=== PATIENT | female | born 1995 | race African-American/Black ===

== ENCOUNTER 2020-01-14 18:32 | Emergency (ER) | payer OTHER ==
[~2020-01-14] VITALS: Ht 170.2 cm; Wt 93.4 kg
[2020-01-14 19:06] VITALS: BP 151/100
--- NOTE | 2020-01-14 19:10 | NUR ---
PT AMB TO [facility]
--- NOTE | 2020-01-14 19:25 | NUR ---
KATARINA SARMIENTO EVALUATING PATIENT IN CHAIR C.
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
[2020-01-14] MEDS ORDERED: KETOROLAC 30 MG/ML VIAL IM ONE (19:35)
[2020-01-14] MEDS ORDERED: HYDROcodone/APAP 5/325 MG 1 TAB TAB PO ONE (19:35)
[2020-01-14] MEDS ORDERED: ONDANSETRON 4 MG ODT PO ONE (19:35)
--- NOTE | 2020-01-14 19:45 | NUR ---
PT AMBULATED TO THE BATHROOM AND PROVIDED URINE SAMPLE.
--- NOTE | 2020-01-14 19:59 | NUR ---
PT TAKEN TO X-RAY VIA W/C
--- NOTE | 2020-01-14 20:10 | NUR ---
PT RETURNED FROM X-RAY.
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
--- NOTE | 2020-01-14 21:00 | NUR ---
PT RE-EVALUATED BY ER KATARINA SARMIENTO.
[2020-01-14 21:21] VITALS: BP 142/88
--- NOTE | 2020-01-14 21:21 | NUR ---
Patient discharged with v/s stable. Written and verbal after care instructions given and explained. Patient alert, oriented and verbalized understanding of instructions. Ambulatory with steady gait. All questions addressed prior to discharge. ID band removed. Patient advised to follow up with PMD. Rx of IBUPROFEN & FLEXERIL given. Patient educated on indication of medication including possible reaction and side effects. Opportunity to ask questions provided and answered.
== END 2020-01-14 21:21 | disposition home or self-care (01) ==
LOC: MED 18:32
DX: S16.1XXA Strain of muscle, fascia and tendon at neck level, initial encounter (principal); S66.912A Strain of unspecified muscle, fascia and tendon at wrist and hand level, left hand, initial encounter; M79.10 Myalgia, unspecified site; R03.0 Elevated blood-pressure reading, without diagnosis of hypertension; X58.XXXA Exposure to other specified factors, initial encounter; Y93.89 Activity, other specified; Y92.89 Other specified places as the place of occurrence of the external cause; Y99.8 Other external cause status
CPT/HCPCS: 29125; 72040; 73110; 81025; 96372; 99284; J1885; Q0162

== ENCOUNTER 2020-08-27 22:39 | Emergency (ER) | payer MEDICAID, OTHER ==
[~2020-08-27] VITALS: Ht 170.2 cm; Wt 94.8 kg
[2020-08-27 22:50] VITALS: BP 133/75
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
--- NOTE | 2020-08-28 00:30 | NUR ---
Dr. Kumar examining patient.
--- NOTE | 2020-08-28 00:59 | NUR ---
COVID PCR SWAB COLLECTED AND SENT TO LAB
--- NOTE | 2020-08-28 01:28 | NUR ---
X-Ray at bedside.
[2020-08-28 02:14] VITALS: BP 133/75
--- NOTE | 2020-08-28 02:14 | NUR ---
Patient discharged with v/s stable. Written and verbal after care instructions given and explained. Patient verbalized understanding. Ambulatory with steady gait. All questions addressed prior to discharge. Advised to follow up with PMD.
--- NOTE | 2020-08-29 14:36 | NUR ---
LATE ENTRY- Positive COVID-19 test results were received from lab. A copy of the test results were placed in infection control mailbox.
== END 2020-08-28 02:14 | disposition home or self-care (01) ==
LOC: MED 22:39
DX: U07.1 COVID-19 (principal)
CPT/HCPCS: 71045; 99284; U0003

== ENCOUNTER 2020-11-25 13:25 | Emergency (ER) | payer OTHER, MEDICAID ==
[~2020-11-25] VITALS: Ht 162.6 cm; Wt 55.3 kg
[2020-11-25 13:47] VITALS: BP 115/68
--- NOTE | 2020-11-25 13:50 | NUR ---
PT SENT TO LOBBY
[2020-11-25] MEDS ORDERED: LIDOCAINE MPF 1% 5 ML ONE (15:02)
[2020-11-25] MEDS: LIDOCAINE MPF 1% 10 MG/ML VIAL INJ ONE (15:06)
[2020-11-25] MEDS ORDERED: BACITRACIN OINT 500 UNITS/GM PKT TP ONE (15:12)
[2020-11-25] MEDS ORDERED: AMOX-1000 PO (15:14)
[2020-11-25] MEDS ORDERED: NAPR-54 PO (15:14)
[2020-11-25] MEDS: BACITRACIN OINT 500 UNITS/GM PKT TP ONE (15:26)
--- NOTE | 2020-11-25 15:26 | NUR ---
Daysi boykin in ED - 11/25/20 at 1559 by [email or web address] NO NURSING INTERVENTIONS GIVEN TO PATIENT.
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
--- NOTE | 2020-11-25 15:32 | NUR ---
Patient discharged with v/s stable. Written and verbal after care instructions given and explained. Patient alert, oriented and verbalized understanding of instructions. Ambulatory with steady gait. All questions addressed prior to discharge. ID band removed. Patient advised to follow up with PMD. Rx of NAPROXEN AND AUGMENTIN given. Patient educated on indication of medication including possible reaction and side effects. Opportunity to ask questions provided and answered.
[2020-11-25 15:38] VITALS: BP 122/64
== END 2020-11-25 15:32 | disposition home or self-care (01) ==
LOC: MED 13:25
DX: S01.511A Laceration without foreign body of lip, initial encounter (principal); Z79.899 Other long term (current) drug therapy; V89.2XXA Person injured in unspecified motor-vehicle accident, traffic, initial encounter; Y93.89 Activity, other specified; Y92.89 Other specified places as the place of occurrence of the external cause; Y99.8 Other external cause status
CPT/HCPCS: 12011; 99283; J2001

== ENCOUNTER 2021-04-26 21:20 | Emergency (ER) | payer MEDICAID ==
[~2021-04-26] VITALS: Ht 170.2 cm; Wt 87.1 kg
[~2021-04-26 21:20] MED LIST: AMOX-1000 PO; NAPR-54 PO
[2021-04-26 21:42] VITALS: BP 127/77
--- NOTE | 2021-04-26 21:53 | NUR ---
PT TAKEN TO LOBBY
--- NOTE | 2021-04-26 22:23 | NUR ---
ERMD AT BEDSIDE.
--- NOTE | 2021-04-26 22:38 | NUR ---
26 Y/O FEMALE BIB SELF, C/O NAUSEA X2 DAYS. PT STATES IN ADDITION TO THE NAUSEA SHE HAS VOMITED ONCE TODAY (-BLOOD), HEADACHE, STOMACH CRAMPS, AND LOSS OF APETITE. NO BLOOD IN VOMIT, NO VISION CHANGES; SKIN IS PINK/WARM/DRY; AAOX4 WITH EVEN AND STEADY GAIT; PT DENIES ANY FEVER, CP, SOB, OR COUGH AT THIS TIME; VSS; PATIENT LAYING RIGHT LATERAL, POSITIONED FOR COMFORT; BEDRAILS UP X1; BED DOWN. ER MD MADE AWARE OF PT STATUS. DENIES PMH, ALLERGIES, OR MEDS
[2021-04-26] MEDS: ACETAMINOPHEN EXTRA STRENGTH 500 MG TAB PO ONE (23:05)
[2021-04-26] MEDS: ONDANSETRON 4 MG ODT PO ONE (23:06)
--- NOTE | 2021-04-26 23:50 | NUR ---
EMILEE/ONOFRE COLLECTED AND WALKED TO LAB
[2021-04-27] MEDS ORDERED: TAM75 PO (01:23)
[2021-04-27] MEDS ORDERED: ONDA-188 SL (01:23)
[2021-04-27 01:40] VITALS: BP 127/77
--- NOTE | 2021-04-27 01:40 | NUR ---
Patient discharged with v/s stable. Written and verbal after care instructions given and explained. Patient alert, oriented and verbalized understanding of instructions. Ambulatory with steady gait. All questions addressed prior to discharge. ID band removed. Patient advised to follow up with PMD. Rx of Ondansetron and Oseltamivir Phosphate given. Patient educated on indication of medication including possible reaction and side effects. Opportunity to ask questions provided and answered. VSS, A/OX4, AMBULATORY, UNLABORED BREATHING, AND CALM DEMEANOR.
== END 2021-04-27 01:40 | disposition home or self-care (01) ==
LOC: MED 21:20
DX: J11.1 Influenza due to unidentified influenza virus with other respiratory manifestations (principal); Z20.822 Contact with and (suspected) exposure to COVID-19; R11.2 Nausea with vomiting, unspecified; R19.7 Diarrhea, unspecified; R10.9 Unspecified abdominal pain; R07.9 Chest pain, unspecified; R05.9 Cough, unspecified; R09.89 Other specified symptoms and signs involving the circulatory and respiratory systems; Z79.899 Other long term (current) drug therapy
CPT/HCPCS: 81002; 81025; 87426; 87804; 93005; 99284; Q0162

== ENCOUNTER 2021-05-18 15:27 | Emergency (ER) | payer MEDICAID ==
[~2021-05-18] VITALS: Ht 170.2 cm; Wt 85.7 kg
[~2021-05-18 15:27] MED LIST changes: +ONDA-188 SL; +TAM75 PO
[2021-05-18 15:47] VITALS: BP 148/97
[2021-05-18] MEDS ORDERED: METOCLOPRAMIDE 10 MG TAB PO ONE (16:20)
[2021-05-18] MEDS ORDERED: ACETAMINOPHEN EXTRA STRENGTH 500 MG TAB PO ONE (16:20)
[2021-05-18 16:28] LABS: BASOPHILS % (AUTO) 0.7 % (0.0-2.0); EOSINOPHILS % (AUTO) 0.9 % (0.0-4.0); HEMOGLOBIN 13.5 g/dL (12.0-16.0); LYMPHOCYTES # (AUTO) 2.2 K/uL (2.5-16.5); LYMPHOCYTES % (AUTO) 43.5 % (20.5-51.1); MEAN CORPUSCULAR HEMOGLOBIN 27 pg (27-31); MEAN CORPUSCULAR HGB CONC 33 g/dL (33-37); MEAN CORPUSCULAR VOLUME 82.5 fL (80-94); MONOCYTES # (AUTO) 0.4 K/uL (0.8-1.0); MONOCYTES % (AUTO) 8.5 % (1.7-9.3); NEUTROPHILS # (AUTO) 2.4 K/uL (1.8-7.7); NEUTROPHILS % (AUTO) 46.4 % (42.2-75.2); PLATELET COUNT (AUTO) 264 K/uL (140-450); RED BLOOD CELL COUNT(AUTO) 4.96 MIL/uL (4.20-5.40); RED CELL DISTRIBUTION WIDTH 14.5 % (11.6-13.7); WHITE BLOOD COUNT (AUTO) 5.2 K/uL (4.8-10.8)
[2021-05-18 17:18] LABS: ALBUMIN 4.2 g/dL (3.4-5.0); ANION GAP 13.8 (8-16); CARBON DIOXIDE 24.1 mmol/L (21-32); CREATININE 0.7 mg/dL (0.6-1.3); POTASSIUM 3.9 mmol/L (3.5-5.1); TOTAL BILIRUBIN 0.5 mg/dL (0.0-1.0)
[2021-05-18 19:46] VITALS: BP 128/77
[2021-05-18 20:31] LABS: APPEARANCE,URINE HAZY (CLEAR); BILIRUBIN,URINE 1+ (NEGATIVE); BLOOD, URINE 3+ (NEGATIVE); COLOR,URINE AMBER (YELLOW); LEUKOCYTE ESTERASE ,URINE NEGATIVE (NEGATIVE); NITRITE, URINE NEGATIVE (NEGATIVE); PH,URINE 8.5 (5.0-9.0); UGLUCOSE NEGATIVE (NEGATIVE)
[2021-05-18 21:16] LABS: RBC,URINE TOO NUMEROUS TO COUN /HPF (0-5); WBC,URINE 0-5 /HPF (0-5)
== END 2021-05-18 19:46 | disposition left against medical advice (07) ==
LOC: MED 15:27
DX: O03.9 Complete or unspecified spontaneous abortion without complication (principal); O99.331 Smoking (tobacco) complicating pregnancy, first trimester; Z3A.01 Less than 8 weeks gestation of pregnancy; Z79.2 Long term (current) use of antibiotics; Z79.899 Other long term (current) drug therapy; Z79.1 Long term (current) use of non-steroidal anti-inflammatories (NSAID)
CPT/HCPCS: 36415; 76817; 80053; 81001; 81025; 83690; 84702; 85025; 86900; 86901; 87086; 99284; J8597; Q0092

== ENCOUNTER 2022-12-05 20:13 | Emergency (ER) | payer BC, MEDICAID ==
[~2022-12-05] VITALS: Ht 170.2 cm; Wt 95.3 kg
[2022-12-05 20:35] VITALS: BP 135/85; PULSE 70; RESP 17; TEMP 97.7; O2SAT 100
[2022-12-05] MEDS ORDERED: KETOROLAC 60 MG/2 ML VIAL IM ONE (22:20)
[2022-12-05] MEDS ORDERED: IBUP-2213 PO (22:52)
[2022-12-05] MEDS ORDERED: ACET-8905 PO (22:52)
== END 2022-12-05 22:58 | disposition home or self-care (01) ==
LOC: MED 20:13
DX: M25.561 Pain in right knee (principal); N93.8 Other specified abnormal uterine and vaginal bleeding; F12.90 Cannabis use, unspecified, uncomplicated; Z79.899 Other long term (current) drug therapy; Z79.1 Long term (current) use of non-steroidal anti-inflammatories (NSAID); Z79.2 Long term (current) use of antibiotics
CPT/HCPCS: 73562; 81025; 96372; 99283; J1885